=== PATIENT | female | born 1975 | race Caucasian/White ===

== ENCOUNTER 2021-05-26 10:05 | Emergency (ER) | payer BC ==
[2021-05-26 11:32] LABS: #Monocytes 0.7 10x3/uL (0.0-1.1); #Neutrophils 8.3 10x3/uL (1.5-8.4); %Basophils 0.1 % (0.0-2.0); %Eosinophils 0.1 % (0.0-6.0); %Lymphocytes 31.8 % (18.0-47.0); %Monocytes 5.3 % (0.0-10.0); %Neutrophils 62.1 % (40.0-75.0); Hemoglobin 15.4 g/dL (12.0-15.5); Mean Corpuscular HGB CONC 33.8 g/dL (32.0-36.0); Mean Corpuscular Hemoglobin 27.6 pg (27.0-33.0); Mean Corpuscular Volume 81.5 fl (81.6-98.3); Mean Platelet Volume 8.3 fl (7.4-10.4); Platelet Count 380 10x3/uL (150-450); RBC Distribution Width 14.2 % (11.5-14.5); Red Blood Cell (RBC) Count 5.58 10x6/uL (3.90-5.03); White Blood Cell (WBC) Count 13.5 10x3/uL (3.5-10.5)
[2021-05-26 11:40] LABS: BHCG - Serum Negative (NEGATIVE); Pregs Control Background? CLEAR/WHITE (CLR/WHITE); Pregs Control Bar Appear? YES (CONTROL BAR)
[2021-05-26 12:35] LABS: Bilirubin Neg (Negative); Blood, Urine Negative (Negative); Clarity Clear (Clear); Glucose, Urine (Dipstick) Normal (Negative); Ketone, Urine Negative (Negative); Leukocyte Negative (Negative); Nitrite Negative (Negative); Protein, Urine (Dipstick) 15 mg/dl (Neg-Trace); Specific Gravity, Urine 1.005 (1.002-1.036); Urobilinogen Normal mg/dL (Less than 2)
[2021-05-26] MEDS ORDERED: Ketorolac Tromethamine 30 MG/ML VIAL ONE (13:05)
[2021-05-26 13:28] LABS: SARS-CoV-2 NAA Rapid Test Not Detected (NotDetected)
[2021-05-26 13:42] LABS: ALT (SGPT) 21 U/L (8-55); AST (SGOT) 16 U/L (5-34); Albumin 4.4 g/dL (3.5-5.0); Alkaline Phosphatase 74 U/L (40-110); Anion Gap 17 mmol/L (10-20); BUN (Urea Nitrogen) 16 mg/dL (7.0-18.7); Bilirubin, Total 0.4 mg/dL (0.2-1.2); Calc. Creatinine Clearance 0 mL/min (70-130); Carbon Dioxide 22 mmol/L (22-29); Chloride 102 mmol/L (98-107); Globulin 3.8 g/dL (2.4-3.5); Glucose 83 mg/dL (70-105); Lipase 14 U/L (8-78); Potassium 3.8 mmol/L (3.5-5.1); Protein, Total 8.2 g/dL (6.0-8.3); Sodium 137 mmol/L (136-145)
[2021-05-26] MEDS ORDERED: Fentanyl 100 MCG/2 ML VIAL ONE (14:40)
== END 2021-05-26 15:10 | disposition home or self-care (01) ==
LOC: CSHERS 10:05
DX: R07.89 Other chest pain (principal); R05.9 Cough, unspecified; Z20.822 Contact with and (suspected) exposure to COVID-19; J45.909 Unspecified asthma, uncomplicated; Z79.899 Other long term (current) drug therapy
CPT/HCPCS: 0240U; 71045; 71275; 80053; 81003; 83690; 84484; 84703; 85025; 85379; 93005; 93010; 96374; 96375; J1885; J3010

== ENCOUNTER 2021-06-05 12:20 | Observation (INO) | payer BC ==
[2021-06-05] MEDS ORDERED: Acetaminophen 500 MG TAB PO PRN (13:57)
[2021-06-05] MEDS ORDERED: GUAIFENESIN SF SOLN 200 MG/10 ML UDCUP PO PRN (13:57)
[2021-06-05 14:16] VITALS: BMI 29.2
[2021-06-05 14:46] LABS: #Monocytes 0.4 10x3/uL (0.0-1.1); #Neutrophils 9.9 10x3/uL (1.5-8.4); %Basophils 0.1 % (0.0-2.0); %Lymphocytes 10.8 % (18.0-47.0); %Neutrophils 85.5 % (40.0-75.0); Hemoglobin 14.1 g/dL (12.0-15.5); Mean Corpuscular HGB CONC 33.5 g/dL (32.0-36.0); Mean Corpuscular Hemoglobin 27.6 pg (27.0-33.0); Mean Corpuscular Volume 82.5 fl (81.6-98.3); Mean Platelet Volume 8.2 fl (7.4-10.4); Platelet Count 357 10x3/uL (150-450); RBC Distribution Width 14.4 % (11.5-14.5); White Blood Cell (WBC) Count 11.6 10x3/uL (3.5-10.5)
[2021-06-05] MEDS ORDERED: Fentanyl 100 MCG/2 ML VIAL SLOW IVP SCH (15:00)
[2021-06-05 15:02] LABS: Anion Gap 12 mmol/L (10-20); BUN (Urea Nitrogen) 16 mg/dL (7.0-18.7); Calc. Creatinine Clearance 115 mL/min (70-130); Calcium 9.4 mg/dL (7.8-10.44); Carbon Dioxide 23 mmol/L (22-29); Chloride 106 mmol/L (98-107); Glucose 105 mg/dL (70-105); Sodium 137 mmol/L (136-145)
[2021-06-05] MEDS: Ketorolac Tromethamine 30 MG/ML VIAL IVP SCH (17:51)
[2021-06-05] MEDS: Fentanyl 100 MCG/2 ML VIAL SLOW IVP PRN ×3 (17:52→22:11)
[2021-06-05] MEDS: Albuterol Sulfate 2.5 mg/3 ml Neb NEB SCH (19:29)
[2021-06-05 20:05] LABS: SARS-CoV-2 NAA Rapid Test Not Detected (NotDetected)
[2021-06-05] MEDS: Fish Oil 1,000 MG CAP PO SCH (20:09)
[2021-06-05] MEDS: Cholecalciferol 1,000 UNITS (25 MCG) TAB PO SCH (20:09)
[2021-06-05] MEDS: Cyanocobalamin (Vitamin B-12) 1,000 MCG TAB PO SCH (20:10)
[2021-06-05] MEDS: Montelukast Sodium 10 mg Tablet PO SCH (20:10)
[2021-06-05] MEDS: Zinc Sulfate 220 MG CAP PO SCH (20:10)
[2021-06-05] MEDS: Escitalopram Oxalate 10 mg Tablet PO SCH (20:10)
[2021-06-05] MEDS: Estradiol 1 MG TAB PO SCH (20:28)
[2021-06-06] MEDS: Ketorolac Tromethamine 30 MG/ML VIAL IVP SCH ×5 (00:11→23:45)
[2021-06-06] MEDS: Fentanyl 100 MCG/2 ML VIAL SLOW IVP PRN ×3 (00:12→06:01)
[2021-06-06 05:25] LABS: #Eosinphils 0.1 10x3/uL (0.0-0.5); #Monocytes 0.8 10x3/uL (0.0-1.1); #Neutrophils 6.5 10x3/uL (1.5-8.4); %Basophils 0.2 % (0.0-2.0); %Lymphocytes 36.5 % (18.0-47.0); %Monocytes 6.9 % (0.0-10.0); %Neutrophils 54.9 % (40.0-75.0); Hemoglobin 13.7 g/dL (12.0-15.5); Mean Corpuscular Hemoglobin 27.4 pg (27.0-33.0); Mean Platelet Volume 8.2 fl (7.4-10.4); Platelet Count 325 10x3/uL (150-450); White Blood Cell (WBC) Count 11.9 10x3/uL (3.5-10.5)
[2021-06-06 05:26] LABS: Anion Gap 12 mmol/L (10-20); BUN (Urea Nitrogen) 16 mg/dL (7.0-18.7); Calc. Creatinine Clearance 107 mL/min (70-130); Carbon Dioxide 28 mmol/L (22-29); Chloride 103 mmol/L (98-107); Glucose 91 mg/dL (70-105); Potassium 4.7 mmol/L (3.5-5.1); Sodium 138 mmol/L (136-145)
[2021-06-06] MEDS: Levothyroxine Sodium 88 MCG TAB PO SCH (06:00)
[2021-06-06] MEDS: Albuterol Sulfate 2.5 mg/3 ml Neb NEB SCH ×3 (07:09→15:17)
[2021-06-06] MEDS: Mometasone/Formoterol 60 PUFF AER INH PRN ×2 (07:17→19:10)
[2021-06-06] MEDS: Acetaminophen 325 MG TAB PO SCH ×4 (07:30→23:47)
[2021-06-06] MEDS ORDERED: HYDROmorphone 2 MG TAB PO PRN (09:02)
[2021-06-06] MEDS ORDERED: oxyCODONE 5 MG TAB PO PRN (09:03)
[2021-06-06] MEDS: Cyclobenzaprine 10 MG TAB PO SCH ×3 (09:09→20:57)
[2021-06-06] MEDS: Fluticasone Propionate Nasal Spray 16 gm Bottle NASAL SCH (09:09)
[2021-06-06] MEDS: Lidocaine 5% Patch TD SCH (09:10)
[2021-06-06] MEDS ORDERED: Senokot 8.6 MG TAB PO SCH (10:15)
[2021-06-06] MEDS ORDERED: Polyethylene Glycol 3350 17 GM Packet PO SCH (10:15)
[2021-06-06 11:53] LABS: Legionella Urinary Ag Negative (Negative); Strep pneumo Urine Ag NEGATIVE (NEGATIVE)
[2021-06-06] MEDS: Albuterol Sulfate 2.5 mg/3 ml Neb EZPAP SCH ×2 (19:00→22:30)
[2021-06-06] MEDS: Estradiol 1 MG TAB PO SCH (20:55)
[2021-06-06] MEDS: Escitalopram Oxalate 10 mg Tablet PO SCH (20:56)
[2021-06-06] MEDS: Fish Oil 1,000 MG CAP PO SCH (20:56)
[2021-06-06] MEDS: Cyanocobalamin (Vitamin B-12) 1,000 MCG TAB PO SCH (20:56)
[2021-06-06] MEDS: Zinc Sulfate 220 MG CAP PO SCH (20:56)
[2021-06-06] MEDS: Cholecalciferol 1,000 UNITS (25 MCG) TAB PO SCH (20:56)
[2021-06-06] MEDS: Montelukast Sodium 10 mg Tablet PO SCH (20:57)
[2021-06-06] MEDS ORDERED: Transdermal Patch Removal TOP SCH (21:00)
[2021-06-06] MEDS ORDERED: traMADol HCl 50 MG TAB PO PRN (23:52)
[2021-06-07 04:41] LABS: #Eosinphils 0.1 10x3/uL (0.0-0.5); #Monocytes 0.6 10x3/uL (0.0-1.1); #Neutrophils 3.9 10x3/uL (1.5-8.4); %Basophils 0.3 % (0.0-2.0); %Eosinophils 1.8 % (0.0-6.0); %Monocytes 7.6 % (0.0-10.0); %Neutrophils 48.8 % (40.0-75.0); Hemoglobin 13.9 g/dL (12.0-15.5); Mean Corpuscular HGB CONC 33.6 g/dL (32.0-36.0); Mean Corpuscular Volume 83.3 fl (81.6-98.3); Platelet Count 288 10x3/uL (150-450); Red Blood Cell (RBC) Count 4.97 10x6/uL (3.90-5.03)
[2021-06-07 04:48] LABS: Anion Gap 11 mmol/L (10-20); BUN (Urea Nitrogen) 13 mg/dL (7.0-18.7); Calc. Creatinine Clearance 119 mL/min (70-130); Carbon Dioxide 26 mmol/L (22-29); Chloride 104 mmol/L (98-107); Potassium 4.1 mmol/L (3.5-5.1); Sodium 137 mmol/L (136-145)
[2021-06-07 04:49] LABS: Calcium 8.9 mg/dL (7.8-10.44); Glucose 86 mg/dL (70-105); Magnesium 2.2 mg/dL (1.6-2.6); Phosphorus 3.3 mg/dL (2.3-4.7)
[2021-06-07] MEDS: Acetaminophen 325 MG TAB PO SCH ×2 (06:19→13:21)
[2021-06-07] MEDS: Ketorolac Tromethamine 30 MG/ML VIAL IVP SCH (06:20)
[2021-06-07] MEDS: Levothyroxine Sodium 88 MCG TAB PO SCH (06:23)
[2021-06-07] MEDS: Mometasone/Formoterol 60 PUFF AER INH PRN (06:50)
[2021-06-07] MEDS: Albuterol Sulfate 2.5 mg/3 ml Neb EZPAP SCH ×4 (06:51→15:31)
[2021-06-07 08:46] VITALS: BP 144/86; TEMP 97.8
[2021-06-07] MEDS ORDERED: Ondansetron PF 4 MG/2 ML Vial IVP PRN (08:59)
[2021-06-07] MEDS: Lidocaine 5% Patch TD SCH (09:00)
[2021-06-07] MEDS ORDERED: Polyethylene Glycol 3350 17 GM Packet PO SCH (09:00)
[2021-06-07] MEDS: Gabapentin 300 MG CAP PO SCH ×2 (09:01→16:12)
[2021-06-07] MEDS: Fluticasone Propionate Nasal Spray 16 gm Bottle NASAL SCH (09:01)
[2021-06-07] MEDS: Cyclobenzaprine 10 MG TAB PO SCH ×2 (09:01→18:18)
[2021-06-07] MEDS ORDERED: Ibuprofen 600 MG TAB PO SCH (13:00)
[2021-06-11 11:37] LABS: QuantiFERON-TB Gold Plus Negative (Negative)
[2021-06-11 13:37] LABS: Mycoplasma pneumoniae IgG AB 320 U/mL (0-99); Mycoplasma pneumoniae IgM AB Less than 770 U/mL (0-769)
[2021-06-11 16:12] LABS: A. flavus Negative (Neg:<1:1); A. fumigatus Negative (Neg:<1:1); A. niger Negative (Neg:<1:1); Coccidioides ABS (DID) Negative (Neg:<1:2)
== END 2021-06-07 17:45 | disposition home or self-care (01) ==
LOC: CSHTELE 12:20 → INTOOBSV 12:20
PROVIDERS: ADMIT Internal Medicine; ATTEND Family Medicine
DX: R07.89 Other chest pain (principal); R50.9 Fever, unspecified; R05.3 Chronic cough; J40 Bronchitis, not specified as acute or chronic; E03.9 Hypothyroidism, unspecified; F41.9 Anxiety disorder, unspecified; K59.00 Constipation, unspecified; Z79.899 Other long term (current) drug therapy; Z79.51 Long term (current) use of inhaled steroids; Z90.710 Acquired absence of both cervix and uterus; R06.82 Tachypnea, not elsewhere classified; R03.0 Elevated blood-pressure reading, without diagnosis of hypertension
CPT/HCPCS: 36415; 71275; 80048; 82085; 82550; 83735; 84100; 84443; 84484; 85025; 85652; 86140; 86480; 86606; 86635; 87040; 87449; 87633; 87798; 87899; 93970; 94640; 94664; 94760; 96374; 96375; 96376; G0378; J1885; J2405; J3010; J7611; U0002

== ENCOUNTER 2021-11-17 10:43 | Outpatient (CLI) | payer BC | END 2021-11-17 10:44 | disposition home or self-care (01) | LOC: CSHMAMMO 10:43 | PROVIDERS: ATTEND Obstetrics & Gynecology | DX: Z12.31 Encounter for screening mammogram for malignant neoplasm of breast (principal); Q83.9 Congenital malformation of breast, unspecified | CPT/HCPCS: 77063; 77067 ==

== ENCOUNTER 2021-11-21 09:36 | Outpatient (CLI) | payer BC | END 2021-11-21 09:37 | disposition home or self-care (01) | LOC: CSHMAMMO 09:36 | PROVIDERS: ATTEND Obstetrics & Gynecology | DX: Q83.8 Other congenital malformations of breast (principal) | CPT/HCPCS: G0279 ==

== ENCOUNTER 2021-12-06 09:34 | Outpatient (CLI) | payer BC ==
[2021-12-06 20:34] LABS: SARS-CoV-2 PCR by NAA Not Detected (NotDetected)
== END 2021-12-06 09:35 | disposition home or self-care (01) ==
LOC: CSHLAB 09:34
PROVIDERS: ATTEND Surgery
DX: Z20.822 Contact with and (suspected) exposure to COVID-19 (principal)
CPT/HCPCS: U0003; U0005

== ENCOUNTER 2021-12-08 07:27 | Day surgery (SDC) | payer BC ==
[2021-12-07 12:16] VITALS: BMI 32.5
[~2021-12-08 07:27] MED LIST: Bupivacaine PF 0.5% 30 ML VIAL ONE; EPINEPHrine 1 MG/ML AMP ONE
[2021-12-08] MEDS ORDERED: Scopolamine 1.5 mg/72 hour Patch ONE (07:58)
[2021-12-08] MEDS ORDERED: Fentanyl 100 MCG/2 ML VIAL ONE ×2 (07:59→09:58)
[2021-12-08] MEDS ORDERED: PROPOFOL 20 ML ONE (07:59)
[2021-12-08] MEDS ORDERED: PHENYLEPHRINE-NS 100 MCG/ML 10 ML SYRINGE ONE ×2 (08:00→09:38)
[2021-12-08] MEDS ORDERED: Dexamethasone 20 MG/5 ML VIAL ONE ×2 (08:30→09:25)
[2021-12-08] MEDS ORDERED: Ondansetron PF 4 MG/2 ML Vial ONE ×3 (08:30→10:00)
[2021-12-08] MEDS ORDERED: Lidocaine 1% PF 5 ML VIAL ONE (08:30)
[2021-12-08] MEDS ORDERED: Lidocaine 1% MPF 2 ML VIAL ONE (08:49)
[2021-12-08] MEDS ORDERED: ceFAZolin 2 GM/Dextrose 50 ML IVPB ONE (08:57)
[2021-12-08] MEDS ORDERED: Acetaminophen 325 MG TAB PO PRN (09:05)
[2021-12-08] MEDS ORDERED: hydrALAZINE 20 MG/ML VIAL ONE (09:26)
[2021-12-08] MEDS ORDERED: Glycopyrrolate 0.2 MG/ML 5 ML SYRINGE ONE (09:29)
== END 2021-12-08 11:15 | disposition home or self-care (01) ==
LOC: CSHSDC 07:27
PROVIDERS: ATTEND Surgery
PROC: 0HBT0ZZ Excision of Right Breast, Open Approach (ICD-10-PCS; principal; 2021-12-08)
DX: N60.91 Unspecified benign mammary dysplasia of right breast (principal); N60.81 Other benign mammary dysplasias of right breast; N60.11 Diffuse cystic mastopathy of right breast; N60.21 Fibroadenosis of right breast; M50.20 Other cervical disc displacement, unspecified cervical region; E03.9 Hypothyroidism, unspecified; J45.909 Unspecified asthma, uncomplicated; K21.9 Gastro-esophageal reflux disease without esophagitis; Z79.890 Hormone replacement therapy; Z79.899 Other long term (current) drug therapy; Z88.2 Allergy status to sulfonamides; Z88.5 Allergy status to narcotic agent
CPT/HCPCS: 19281; 76098; 88307; J0171; J0360; J0690; J1100; J2405; J2704; J3010; S0020

== ENCOUNTER 2022-03-07 12:22 | Outpatient (CLI) | payer BC | END 2022-03-07 12:23 | disposition home or self-care (01) | LOC: CSHCT 12:22 | PROVIDERS: ATTEND Surgery | DX: M50.20 Other cervical disc displacement, unspecified cervical region (principal); M50.30 Other cervical disc degeneration, unspecified cervical region; M47.812 Spondylosis without myelopathy or radiculopathy, cervical region | CPT/HCPCS: 72125 ==